=== PATIENT | male | born 1955 | race Caucasian/White ===

== ENCOUNTER 2019-05-29 18:15 | Emergency (ER) | payer OTHER ==
[2019-05-29] MEDS ORDERED: oxyCODONE TAB* 5 MG TAB PO ONE (21:26)
--- NOTE | 2019-05-29 22:00 | ED ---
Upper Extremity Pain - HPI Summary HPI Summary: 64 year old male presents with right little finger injury. States that he smashed it on some concrete while biking. He denies any hand pain. no other injury. Is right-handed. Has limited range of motion of his little finger. States is in extreme pain. Denies any injury. No loss consciousness. - History of Current Complaint Chief Complaint: EDExtremityUpper Stated Complaint: RT PINKY FINEGER INJURY PER PT Time Seen by Provider: 05/29/19 21:25 - Allergies/Home Medications Allergies/Adverse Reactions: Allergies Allergy/AdvReac Type Severity Reaction Status Date / Time acetaminophen Allergy Bleeding Verified 05/29/19 18:25 naproxen Allergy See Comment Verified 05/29/19 18:51 NSAIDS (Non-Steroidal Allergy Unknown Verified 05/29/19 18:51 Anti-Inflamma Reaction Details pravastatin Allergy Muscle Ache Verified 05/29/19 18:51 shellfish derived Allergy Hives Verified 05/29/19 18:25 Home Medications: Home Medications Aspirin EC TAB* [Ecotrin EC TAB*] 325 mg PO DAILY 01/03/12 [History Confirmed ] Citalopram TAB* [Celexa TAB*] 40 mg PO DAILY 01/03/12 [History Confirmed ] Furosemide TAB* [Lasix TAB*] 40 mg PO BID 01/03/12 [History Confirmed 11/16/15] Gemfibrozil TAB* [Lopid TAB*] 1 tab PO BID 01/03/12 [History Confirmed 11/16/15 ] cloNIDine TAB* [Catapres 0.1 MG TAB*] 0.2 mg PO BEDTIME 01/03/12 [History Confirmed 11/16/15] clonazePAM TAB(*) [Klonopin TAB(*)] 1 mg PO BID 01/03/12 [History Confirmed ] metFORMIN* [Glucophage 500 MG TAB *] 500 mg PO BID 01/03/12 [History Confirmed 11/16/15] Acyclovir* [Zovirax 400 MG TAB*] 400 mg PO BID 09/25/13 [History Confirmed 11/15] Nitroglycerin [Nitrostat] 0.4 mg SL SEE INSTRUCTIONS PRN 09/25/13 [History Confirmed 11/15/15] Ezetimibe TAB* [Zetia TAB*] 10 mg PO DAILY 11/15/15 [History Confirmed 11/16/15] Fluticasone NASAL SPRAY 50MCG* [Flonase NASAL SPRAY 50MCG*] 1 spray BOTH NARES DAILY PRN 11/15/15 [History Confirmed 11/16/15] Iron 65 mg PO DAILY 11/15/15 [History Confirmed 11/16/15] oxyCODONE SR TAB(*) [Oxycontin 10 mg (*)] 15 mg PO BID 11/15/15 [History Confirmed 11/16/15] Aclidinium [place] [Tudorza Pressair] 2 puff INH DAILY PRN 11/16/15 [History Confirmed 11/16/15] Allopurinol TAB* [Zyloprim 100 MG TAB*] 100 mg PO BID 11/16/15 [History Confirmed 11/16/15] Atenolol TAB* [Tenormin TAB* 25 MG] 25 mg PO BID 11/16/15 [History Confirmed ] Cholecalciferol [Vitamin D3] 50,000 unit PO MONTHLY 11/16/15 [History Confirmed 11/16/15] Famotidine TAB* [Pepcid 20 MG TAB*] 20 mg PO BID 11/16/15 [History Confirmed ] Lisinopril [Lisinopril 40 MG-] 40 mg PO DAILY 11/16/15 [History Confirmed ] Polyethylene Glycol 3350* [Miralax (17 GM DOSE NICANOR)] 17 gm PO DAILY PRN [History Confirmed 11/16/15] Trazodone HCl 3 tab PO BEDTIME 11/16/15 [History Confirmed 11/16/15] oxyCODONE TAB* [Roxycodone TAB 5 mg*] 5 mg PO Q6H PRN #16 tab MDD 4 05/29/19 [Rx ] PMH/Surg Hx/FS Hx/Imm Hx Endocrine/Hematology History: Reports: Hx Diabetes, Hx Anemia Denies: Hx Anticoagulant Therapy, Hx Blood Disorders, Hx Blood Transfusions, Hx Bone Marrow Disease, Hx Systemic Lupus Erythematosus, Hx Sickle Cell Disease , Hx Thyroid Disease, Hx Unexplained Bleeding Cardiovascular History: Reports: Hx Angina, Hx Congestive Heart Failure, Hx Coronary Artery Disease, Hx Hypercholesterolemia, Hx Hypertension, Hx Syncope - day of admission, Other Cardiovascular Problems/Disorders - CORONARY ARTERIOSCLEROSIS Denies: Hx Aneurysm, Hx Angioplasty, Hx Auto Implanted Cardiovert Defib, Hx Cardiac Arrest, Hx Cardiomegaly, Hx Congenital Heart Disease, Hx Deep Vein Thrombosis, Hx Hypotension, Hx Pacemaker/ICD, Hx Peripheral Vascular Disease, Hx Rheumatic Fever, Hx Valvular Heart Disease Respiratory History: Reports: Hx Asthma, Hx Chronic Obstructive Pulmonary Disease (COPD), Hx Lung Cancer, Hx Pneumonia, Hx Sleep Apnea Denies: Hx Chronic Bronchitis, Hx Cystic Fibrosis, Hx Pleural Effusion, Hx Pulmonary Edema, Hx Pulmonary Embolism, Hx Seasonal Allergies Comment Only: Other Respiratory Problems/Disorders - smoker; wears bipap at HS GI History: Reports: Hx Diverticulosis, Hx Gastrointestinal Bleed, Other GI Disorders - GI BLEED, UMBILICAL HERNIA Denies: Hx Cirrhosis, Hx Crohn's Disease, Hx Gall Bladder Disease, Hx Gastroesophageal Reflux Disease, Hx Hiatal Hernia, Hx Irritable Bowel, Hx Jaundice, Hx Obstructive Bowel, Hx Ileostomy, Hx Pyloric Stenosis, Hx Ulcer History: Reports: Hx Acute Renal Failure - 06/2011, Hx Kidney Infection, Hx Renal Disease - ACUTE RENAL DUE 2 NSAID'S Denies: Hx Benign Prostatic Hyperplasia, Hx Chronic Renal Failure, Hx Dialysis, Hx Kidney Stones, Other Problems/Disorders Musculoskeletal History: Reports: Hx Arthritis - bilat hands, RIGHT KNEE, Hx Back Problems - herniated discs, Hx Gout, Hx Orthopedic Injury - left wrist, Other Musculoskeletal History - knee problems Denies: Hx Bursitis, Hx Congenital Bone Abnormalities, Hx Fibromyalgia, Hx Osteoporosis, Hx Scoliosis, Hx Tendonitis Sensory History: Reports: Hx Contacts or Glasses Denies: Hx Cataracts, Hx Eye Injury, Hx Eye Prosthesis, Hx Glaucoma, Hx Macular Degeneration, Hx Vision Problem, Hx Deafness, Hx Hearing Aid, Hx Hearing Problem, Other Sensory Impairments Opthamlomology History: Reports: Hx Contacts or Glasses Denies: Hx Cataracts, Hx Eye Injury, Hx Eye Prosthesis, Hx Glaucoma, Hx Macular Degeneration, Hx Vision Problem, Other Sensory Impairments Neurological History: Reports: Hx Headaches Denies: Hx Dementia, Hx Seizures Psychiatric History: Reports: Hx Anxiety - ON MEDICATION FOR, Hx Depression - ON MEDICATION FOR, Hx Panic Disorder, Hx Substance Abuse Denies: Hx Attention Deficit Hyperactivity Disorder, Hx Eating Disorder, Hx Post Traumatic Stress Disorder, Hx Inpatient Treatment, Hx Community Mental Health Tx, Hx Schizophrenia, Hx Bipolar Disorder, Hx Suicide Attempt - Surgical History Surgery Procedure, Year, and Place: R knee at [facility] for torn meniscus. bilat wrist surgery in [place]. rhinoplasty for deviated septum. REPAIR OF LACERATION HAND-1988 Hx Anesthesia Reactions: No - Immunization History Date of Tetanus Vaccine: Up to date Date of Influenza Vaccine: Fall 2012 Infectious Disease History: Yes Infectious Disease History: Reports: Hx Hepatitis - C, Hx Shingles - pt unsure if it was shingles or herpes, Hx Tuberculosis - exposure; +PPD, -CXR Denies: Hx Clostridium Difficile, Hx Human Immunodeficiency Virus (HIV), Traveled Outside the [place] in Last 30 Days - Social History Alcohol Use: None Alcohol Amount: SOBER X 8 YEARS Substance Use Type: Reports: Excessive Caffeine Hx Tobacco Use: Yes Smoking Status (MU): Former Smoker Type: eCigarettes Amount Used/How Often: 1-2 PPD X 30 YEARS Length of Time of Smoking/Using Tobacco: 30 yrs Have You Smoked in the Last Year: Yes Review of Systems Negative: Fever Negative: Chest Pain Negative: Shortness Of Breath Positive: Myalgia - right little finger pain All Other Systems Reviewed And Are Negative: Yes Physical Exam Triage Information Reviewed: Yes Vital Signs On Initial Exam: Initial Vitals Temp Pulse Resp BP Pulse Ox 97.9 F 69 16 110/65 96 05/29/19 18:23 05/29/19 18:23 05/29/19 18:23 05/29/19 18:23 05/29/19 18:23 Vital Signs Reviewed: Yes Appearance: Positive: Well-Appearing Skin: Positive: Warm, Dry Head/Face: Positive: Normal Head/Face Inspection Eyes: Positive: Normal, Conjunctiva Clear ENT: Positive: Pharynx normal Respiratory/Lung Sounds: Positive: Clear to Auscultation, Breath Sounds Present Cardiovascular: Positive: Normal, RRR Musculoskeletal: Positive: Limited @ - right little finger, Other - good pulses , tenderness and bruising left little finger Neurological: Positive: Normal Psychiatric: Positive: Normal Procedures - Sedation Patient Received Moderate/Deep Sedation with Procedure: No Diagnostics - Vital Signs Vital Signs Temp Pulse Resp BP Pulse Ox 05/29/19 20:40 98.2 F 72 18 119/62 97 05/29/19 18:23 97.9 F 69 16 110/65 96 - Laboratory Lab Statement: Any lab studies that have been ordered have been reviewed, and results considered in the medical decision making process. - Radiology finger Radiology Interpretation Completed By: ED Physician Summary of Radiographic Findings: 1st proximal phlanax fracture Course/Dx - Course Course Of Treatment: 64 year old male presents with right little finger injury. States that he smashed it on some concrete while biking. He denies any hand pain. no other injury. Is right-handed. Has limited range of motion of his little finger. States is in extreme pain. Denies any injury. No loss consciousness. On exam tenderness over proximal phalanx right hand. Ecchymosis to the area. X-ray shows a fracture of the proximal phalanx. Place in finger splint. told to follow-up with orthopedic. Patient understands and agrees with plan. - Diagnoses Differential Diagnosis/HQI/PQRI: Positive: Fracture (Closed), Strain, Sprain Provider Diagnoses: Fracture of proximal phalanx of right little finger Discharge ED - Sign-Out/Discharge Documenting (check all that apply): Patient Departure - Discharge Plan Condition: Good Disposition: HOME Prescriptions: oxyCODONE TAB* [Roxycodone TAB 5 mg*] 5 mg PO Q6H PRN #16 tab MDD 4 PRN Reason: Pain - Severe Patient Education Materials: Finger Fracture (ED) Referrals: Wayne Townsend MD [Primary Care Provider] - Emiliano Vallejo MD [Medical Doctor] - Additional Instructions: Keep finger in splint Follow up with ortho apply ice, elevate Take oxycodone every 6 hours for severe pain Return to ED if develop any new or worsening symptoms - Billing Disposition and Condition Condition: GOOD Disposition: Home
[2019-05-29 22:17] VITALS: BP 117/75
== END 2019-05-29 22:16 | disposition home or self-care (01) ==
LOC: ED 18:15
DX: S62.646A Nondisplaced fracture of proximal phalanx of right little finger, initial encounter for closed fracture (principal); W23.0XXA Caught, crushed, jammed, or pinched between moving objects, initial encounter; Y93.55 Activity, bike riding; Y92.9 Unspecified place or not applicable; E11.9 Type 2 diabetes mellitus without complications; D64.9 Anemia, unspecified; I11.0 Hypertensive heart disease with heart failure; I50.9 Heart failure, unspecified; I25.10 Atherosclerotic heart disease of native coronary artery without angina pectoris; E78.00 Pure hypercholesterolemia, unspecified; J44.9 Chronic obstructive pulmonary disease, unspecified; F41.9 Anxiety disorder, unspecified; F32.9 Major depressive disorder, single episode, unspecified; Z87.891 Personal history of nicotine dependence; Z79.84 Long term (current) use of oral hypoglycemic drugs; Z79.82 Long term (current) use of aspirin; Z79.899 Other long term (current) drug therapy; Z88.8 Allergy status to other drugs, medicaments and biological substances
CPT/HCPCS: 73140; 99282; A9270-GY

== ENCOUNTER 2020-10-10 13:26 | Inpatient (IN) ==
[2020-10-10] MEDS ORDERED: NS 0.9% 1000 ml BAG 1,000 ML IV ONE (14:15)
[2020-10-10 15:01] LABS: ABS Eosinophils 0.1 10^3/ul (0-0.6); ABS Monocytes 0.5 10^3/ul (0-0.8); ABS Neutrophils 3.8 10^3/ul (1.5-7.7); Eosinophil % 2.2 %; Hematocrit 31 % (42-52); Hemoglobin 10.2 g/dL (14.0-18.0); Lymphocyte % 18.1 %; Mean Corpuscular HGB Conc 33 g/dL (31-36); Mean Corpuscular Hemoglobin 32 pg (27-31); Mean Corpuscular Volume 97 fL (80-94); Mean Platelet Volume 7.3 fL (7.4-10.4); Platelet Count 200 10^3/uL (150-450); Red Blood Count 3.15 10^6 /uL (4.18-5.48); Red Cell Distribution Width 14 % (10-15); White Blood Count 5.5 10^3/uL (3.5-10.8)
[2020-10-10 15:18] LABS: Activated Partial Thrombo Time 40.9 seconds (26.0-38.0); INR 1.08 (0.86-1.15)
[2020-10-10 16:41] LABS: Albumin 4.2 g/dL (3.2-5.2); Albumin/Globulin Ratio 1.6 (1-3); C Reactive Protein 4.04 mg/L (<8.01); Calcium 9.4 mg/dL (8.6-10.3); EGFR African American 58.4 (>60); EGFR Non-African American 48.2 (>60); Globulin 2.6 g/dL (2-4); Potassium 4.9 mmol/L (3.5-5.0); Total Bilirubin 0.4 mg/dL (0.2-1.0); Total Protein 6.8 g/dL (6.4-8.9)
[2020-10-10] MEDS ORDERED: Iodixanol (CONTRAST) 320 MG/ML 100 ML SDV IV ONE (17:04)
[2020-10-10] MEDS ORDERED: Lactated Ringers 1000 ml BAG 1,000 ML IV ONE (17:59)
[2020-10-10] MEDS ORDERED: Ondansetron 4 mg VIAL 2 MG/ML 2 ml VIAL IV PRN (19:36)
[2020-10-10] MEDS ORDERED: Dextrose 50% Syringe 50 ml 25 GM/50 ML SYRINGE IV PUSH PRN (19:50)
[2020-10-10] MEDS ORDERED: CLONIDINE HCL 0.2 MG PO SCH (21:00)
[2020-10-10] MEDS: Lactated Ringers 1000 ml BAG 1,000 ML IV SCH (22:14)
[2020-10-10 22:28] LABS: Hematocrit 27 % (42-52); Hemoglobin 9.2 g/dL (14.0-18.0)
[2020-10-10] MEDS: Gemfibrozil 600 mg PO SCH (22:34)
[2020-10-10 22:56] LABS: % Iron Saturation 28 % (15-55); Iron 92 ug/dL (50-212); Total Iron Binding Capacity 332 mcg/dL (250-450); Transferrin 237 mg/dL (203-362); Unsaturated Iron Binding < 317 ug/dL
[2020-10-10 23:16] LABS: Ferritin 61.3 ng/mL (24-336)
[2020-10-10 23:19] LABS: Folate > 20.00 ng/mL (5.90-24.80)
[2020-10-10 23:20] LABS: Vitamin B12 304 pg/mL (180-914)
[2020-10-11 01:57] LABS: Hematocrit 24 % (42-52); Hemoglobin 8.1 g/dL (14.0-18.0)
[2020-10-11 04:26] LABS: ABS Eosinophils 0.2 10^3/ul (0-0.6); ABS Lymphocytes 1.5 10^3/ul (1.0-4.8); ABS Monocytes 0.5 10^3/ul (0-0.8); ABS Neutrophils 1.8 10^3/ul (1.5-7.7); Eosinophil % 4.3 %; Hematocrit 24 % (42-52); Hemoglobin 8.2 g/dL (14.0-18.0); Lymphocyte % 37.7 %; Mean Corpuscular HGB Conc 34 g/dL (31-36); Mean Corpuscular Hemoglobin 33 pg (27-31); Mean Corpuscular Volume 97 fL (80-94); Mean Platelet Volume 7.1 fL (7.4-10.4); Nucleated Red Blood Cells % 0.1; Platelet Count 152 10^3/uL (150-450); Red Blood Count 2.47 10^6 /uL (4.18-5.48); Red Cell Distribution Width 14 % (10-15)
[2020-10-11 04:40] LABS: Calcium 8.4 mg/dL (8.6-10.3); EGFR African American 62.8 (>60); EGFR Non-African American 51.9 (>60); Magnesium 1.8 mg/dL (1.9-2.7); Potassium 3.8 mmol/L (3.5-5.0)
[2020-10-11] MEDS: Lactated Ringers 1000 ml BAG 1,000 ML IV SCH ×2 (05:48→20:29)
[2020-10-11] MEDS: SPIRIVA Respimat (tiotropium) 2.5 mcg/inh Inhaler INH SCH (07:32)
[2020-10-11] MEDS: buPROPion SR 100 mg TAB.SR PO SCH (11:17)
[2020-10-11] MEDS: Gemfibrozil 600 mg PO SCH ×2 (11:18→20:32)
[2020-10-11 15:03] LABS: ABS Eosinophils 0.1 10^3/ul (0-0.6); ABS Monocytes 0.4 10^3/ul (0-0.8); Eosinophil % 2.6 %; Hematocrit 22 % (42-52); Hemoglobin 7.6 g/dL (14.0-18.0); Lymphocyte % 22.7 %; Mean Corpuscular HGB Conc 34 g/dL (31-36); Mean Corpuscular Hemoglobin 33 pg (27-31); Mean Corpuscular Volume 97 fL (80-94); Mean Platelet Volume 7.9 fL (7.4-10.4); Nucleated Red Blood Cells % 0.1; Platelet Count 184 10^3/uL (150-450); Red Cell Distribution Width 15 % (10-15); White Blood Count 4.6 10^3/uL (3.5-10.8)
[2020-10-11] MEDS ORDERED: PEG 3000 GI LAVAGE 1 GALLON PO ONE (15:54)
[2020-10-11 21:14] LABS: ABS Eosinophils 0.2 10^3/ul (0-0.6); ABS Lymphocytes 1.4 10^3/ul (1.0-4.8); ABS Monocytes 0.5 10^3/ul (0-0.8); ABS Neutrophils 2.8 10^3/ul (1.5-7.7); Eosinophil % 3.3 %; Hematocrit 23 % (42-52); Hemoglobin 7.9 g/dL (14.0-18.0); Lymphocyte % 28.5 %; Mean Corpuscular HGB Conc 34 g/dL (31-36); Mean Corpuscular Hemoglobin 33 pg (27-31); Mean Corpuscular Volume 97 fL (80-94); Mean Platelet Volume 7.2 fL (7.4-10.4); Platelet Count 182 10^3/uL (150-450); Red Blood Count 2.37 10^6 /uL (4.18-5.48); Red Cell Distribution Width 14 % (10-15); White Blood Count 4.9 10^3/uL (3.5-10.8)
[2020-10-12 05:02] LABS: ABS Eosinophils 0.2 10^3/ul (0-0.6); ABS Lymphocytes 1.7 10^3/ul (1.0-4.8); ABS Monocytes 0.6 10^3/ul (0-0.8); Eosinophil % 3.9 %; Hematocrit 22 % (42-52); Hemoglobin 7.5 g/dL (14.0-18.0); Lymphocyte % 30.6 %; Mean Corpuscular HGB Conc 34 g/dL (31-36); Mean Corpuscular Hemoglobin 33 pg (27-31); Mean Corpuscular Volume 97 fL (80-94); Mean Platelet Volume 7.2 fL (7.4-10.4); Nucleated Red Blood Cells % 0.1; Platelet Count 166 10^3/uL (150-450); Red Blood Count 2.25 10^6 /uL (4.18-5.48); Red Cell Distribution Width 15 % (10-15); White Blood Count 5.5 10^3/uL (3.5-10.8)
[2020-10-12 05:18] LABS: Calcium 8.6 mg/dL (8.6-10.3); EGFR African American 79.1 (>60); EGFR Non-African American 65.3 (>60); Potassium 3.8 mmol/L (3.5-5.0)
[2020-10-12] MEDS ORDERED: fentaNYL 100 mcg/2 ml 50 MCG/ML VIAL ONE (08:56)
[2020-10-12] MEDS ORDERED: Midazolam 10 mg/10 ml VIAL 1 mg/ml 10 ml VIAL (10 mg) ONE (08:56)
[2020-10-12] MEDS: SPIRIVA Respimat (tiotropium) 2.5 mcg/inh Inhaler INH SCH (10:38)
[2020-10-12] MEDS: buPROPion SR 100 mg TAB.SR PO SCH (12:12)
[2020-10-12] MEDS: Gemfibrozil 600 mg PO SCH ×2 (12:14→20:42)
[2020-10-12 12:16] LABS: ABS Eosinophils 0.1 10^3/ul (0-0.6); ABS Lymphocytes 0.7 10^3/ul (1.0-4.8); ABS Monocytes 0.4 10^3/ul (0-0.8); ABS Neutrophils 2.2 10^3/ul (1.5-7.7); Eosinophil % 2.4 %; Hematocrit 20 % (42-52); Hemoglobin 6.8 g/dL (14.0-18.0); Mean Corpuscular HGB Conc 35 g/dL (31-36); Mean Corpuscular Hemoglobin 33 pg (27-31); Mean Corpuscular Volume 97 fL (80-94); Platelet Count 145 10^3/uL (150-450); Red Blood Count 2.03 10^6 /uL (4.18-5.48); Red Cell Distribution Width 14 % (10-15); White Blood Count 3.4 10^3/uL (3.5-10.8)
[2020-10-12 22:00] LABS: ABS Eosinophils 0.1 10^3/ul (0-0.6); ABS Monocytes 0.6 10^3/ul (0-0.8); ABS Neutrophils 2.5 10^3/ul (1.5-7.7); Eosinophil % 3.4 %; Hematocrit 23 % (42-52); Hemoglobin 7.9 g/dL (14.0-18.0); Lymphocyte % 22.7 %; Mean Corpuscular HGB Conc 35 g/dL (31-36); Mean Corpuscular Hemoglobin 32 pg (27-31); Mean Corpuscular Volume 93 fL (80-94); Mean Platelet Volume 6.9 fL (7.4-10.4); Platelet Count 156 10^3/uL (150-450); Red Blood Count 2.46 10^6 /uL (4.18-5.48); Red Cell Distribution Width 17 % (10-15); White Blood Count 4.2 10^3/uL (3.5-10.8)
[2020-10-12] MEDS ORDERED: Furosemide 20 mg/2 ml IV VIAL IV ONE (22:00)
[2020-10-13] MEDS ORDERED: Furosemide 20 mg/2 ml IV VIAL IV ONE (04:00)
[2020-10-13 05:01] LABS: ABS Eosinophils 0.2 10^3/ul (0-0.6); ABS Lymphocytes 1.3 10^3/ul (1.0-4.8); ABS Monocytes 0.6 10^3/ul (0-0.8); ABS Neutrophils 2.2 10^3/ul (1.5-7.7); Eosinophil % 4.3 %; Hematocrit 25 % (42-52); Hemoglobin 8.6 g/dL (14.0-18.0); Lymphocyte % 30.3 %; Mean Corpuscular HGB Conc 34 g/dL (31-36); Mean Corpuscular Hemoglobin 32 pg (27-31); Mean Corpuscular Volume 92 fL (80-94); Mean Platelet Volume 7.1 fL (7.4-10.4); Nucleated Red Blood Cells % 0.1; Platelet Count 152 10^3/uL (150-450); Red Blood Count 2.73 10^6 /uL (4.18-5.48); Red Cell Distribution Width 17 % (10-15); White Blood Count 4.3 10^3/uL (3.5-10.8)
[2020-10-13 05:18] LABS: Calcium 8.8 mg/dL (8.6-10.3); EGFR Non-African American 71.1 (>60); Potassium 3.9 mmol/L (3.5-5.0)
[2020-10-13] MEDS: buPROPion SR 100 mg TAB.SR PO SCH (09:00)
[2020-10-13] MEDS: Gemfibrozil 600 mg PO SCH ×2 (09:08→19:55)
[2020-10-13] MEDS: SPIRIVA Respimat (tiotropium) 2.5 mcg/inh Inhaler INH SCH (09:19)
[2020-10-14 05:09] LABS: ABS Eosinophils 0.2 10^3/ul (0-0.6); ABS Lymphocytes 1.5 10^3/ul (1.0-4.8); ABS Monocytes 0.6 10^3/ul (0-0.8); ABS Neutrophils 2.3 10^3/ul (1.5-7.7); Eosinophil % 4.7 %; Hematocrit 26 % (42-52); Hemoglobin 9.1 g/dL (14.0-18.0); Lymphocyte % 32.3 %; Mean Corpuscular HGB Conc 35 g/dL (31-36); Mean Corpuscular Hemoglobin 33 pg (27-31); Mean Corpuscular Volume 92 fL (80-94); Mean Platelet Volume 7.4 fL (7.4-10.4); Nucleated Red Blood Cells % 0.1; Platelet Count 167 10^3/uL (150-450); Red Blood Count 2.79 10^6 /uL (4.18-5.48); Red Cell Distribution Width 17 % (10-15); White Blood Count 4.6 10^3/uL (3.5-10.8)
[2020-10-14 05:23] LABS: Calcium 9.1 mg/dL (8.6-10.3); EGFR African American 78.3 (>60); EGFR Non-African American 64.7 (>60); Potassium 4.1 mmol/L (3.5-5.0)
[2020-10-14] MEDS: SPIRIVA Respimat (tiotropium) 2.5 mcg/inh Inhaler INH SCH (07:15)
[2020-10-14] MEDS: buPROPion SR 100 mg TAB.SR PO SCH (09:52)
[2020-10-14] MEDS: Gemfibrozil 600 mg PO SCH (09:52)
[2020-10-14] MEDS ORDERED: Polyethylene Glycol 3350 17 GM PACKET PO ONE (10:03)
[2020-10-14 20:32] VITALS: BP 122/76
== END 2020-10-14 16:35 | disposition home or self-care (01) | DRG 244 ==
LOC: MEDTELE 13:26 → ED 13:26 → MEDTELE 21:48
PROVIDERS: ADMIT Internal Medicine; ATTEND Internal Medicine

== ENCOUNTER 2021-11-22 17:18 | Inpatient (IN) ==
[2021-11-22 18:51] LABS: Hematocrit 34 % (42-52); Hemoglobin 11.7 g/dL (14.0-18.0); Mean Corpuscular HGB Conc 35 g/dL (31-36); Mean Corpuscular Hemoglobin 32 pg (27-31); Mean Corpuscular Volume 93 fL (80-94); Mean Platelet Volume 6.6 fL (7.4-10.4); Platelet Count 336 10^3/uL (150-450); Red Blood Count 3.66 10^6 /uL (4.18-5.48); Red Cell Distribution Width 14 % (10-15); White Blood Count 17.4 10^3/uL (3.5-10.8)
[2021-11-22 19:14] LABS: High Sens Troponin Baseline 24 pg/mL (<20)
[2021-11-22] MEDS ORDERED: Lactated Ringers 1000 ml BAG 1,000 ML IV ONE ×2 (19:23→20:31)
[2021-11-22 19:27] LABS: ABS Lymphocytes 1.1 10^3/ul (1.0-4.8); ABS Monocytes 0.9 10^3/ul (0-0.8); ABS Neutrophils 15.4 10^3/ul (1.5-7.7); Lymphocyte % 6.5 %
[2021-11-22 19:31] LABS: ALT 25 U/L (7-52); AST 89 U/L (13-39); Albumin 4.9 g/dL (3.2-5.2); Albumin/Globulin Ratio 1.6 (1-3); Alcohol, S < 13 mg/dL (<13); Alkaline Phosphatase 68 U/L (35-149); Anion Gap 20 mmol/L (2-11); Blood Urea Nitrogen 62 mg/dL (6-24); CO2 Carbon Dioxide 21 mmol/L (22-32); Calcium 11.2 mg/dL (8.6-10.3); Chloride 84 mmol/L (101-111); Creatine Kinase 1893 U/L (10-223); Glucose 129 mg/dL (70-100); Sodium 125 mmol/L (135-145); Total Protein 7.9 g/dL (6.4-8.9); eGFR CKD-EPI 24.6 (>60)
[2021-11-22 19:45] LABS: TSH Ultra Thyroid Stim Horm 1.51 mcIU/mL (0.34-5.60)
[2021-11-22 19:48] LABS: Venous Bicarbonate HCO3 24.7 mmol/L (24-28)
[2021-11-22 20:11] LABS: High Sensitivity Troponin 1 Hr 26 pg/mL (<20)
[2021-11-22] MEDS ORDERED: cefTRIAXone 1 gm/50 mL D5W 1 GM/50 ML BAG IV ONE (20:27)
[2021-11-22 21:26] LABS: Ur Urea Nitrogen Concentration 747 mg/dL; Urine Creatinine Concentration 119.35 mg/dL
[2021-11-22 21:27] LABS: Urine Benzodiazepine Screen None Detected (None Detect); Urine Cannabinoids Screen None Detected (None Detect); Urine Opiates Screen None Detected (None Detect)
[2021-11-22 21:28] LABS: Urine Appearance Clear; Urine Bilirubin Negative (Negative); Urine Color Yellow; Urine Glucose Negative (Negative); Urine Ketones 1+ (15mg/dL) (Negative); Urine Nitrite Negative (Negative); Urine Protein 1+ (30 mg/dL) (Negative); Urine Urobilinogen 0.2 (Negative) (Negative); Urine pH 5.5 (5.0-9.0)
[2021-11-22 21:32] LABS: Urine Bacteria Absent (Absent); Urine Red Blood Cell Trace(0-2/hpf) (Absent); Urine Squamous Epithelial Cell Present (Absent); Urine White Blood Cell Trace(0-5/hpf) (Absent)
[2021-11-22 21:54] LABS: C Reactive Protein 41.41 mg/L (<8.01)
[2021-11-22] MEDS ORDERED: NS 0.9% 1000 ml BAG 1,000 ML IV SCH (22:30)
[2021-11-22 22:50] LABS: Phosphorus 3.7 mg/dL (2.5-5.0)
[2021-11-22 23:29] LABS: Erythrocyte Sed Rate 63 mm/Hr (0-19)
[2021-11-23] MEDS ORDERED: Polyethylene Glycol 3350 17 GM PACKET PO PRN (03:56)
[2021-11-23] MEDS ORDERED: Albuterol HFA INHALER 8 gm MDI INH PRN (03:56)
[2021-11-23] MEDS ORDERED: NS 0.9% 1000 ml BAG 1,000 ML IV SCH (04:30)
[2021-11-23] MEDS ORDERED: Dextran 70/Hypromellose Tears Eye Drops 15 ml BTL (for Artificials Tears) BOTH EYES PRN (04:46)
[2021-11-23 05:44] LABS: ABS Lymphocytes 0.9 10^3/ul (1.0-4.8); ABS Neutrophils 11.7 10^3/ul (1.5-7.7); Hematocrit 30 % (42-52); Hemoglobin 10.2 g/dL (14.0-18.0); Lymphocyte % 6.9 %; Mean Corpuscular HGB Conc 34 g/dL (31-36); Mean Corpuscular Hemoglobin 32 pg (27-31); Mean Corpuscular Volume 93 fL (80-94); Mean Platelet Volume 6.5 fL (7.4-10.4); Platelet Count 313 10^3/uL (150-450); Red Blood Count 3.21 10^6 /uL (4.18-5.48); Red Cell Distribution Width 14 % (10-15); White Blood Count 13.7 10^3/uL (3.5-10.8)
[2021-11-23 07:15] LABS: Albumin 4.2 g/dL (3.2-5.2); Albumin/Globulin Ratio 1.8 (1-3); Calcium 10.1 mg/dL (8.6-10.3); Globulin 2.4 g/dL (2-4); Potassium 3.7 mmol/L (3.5-5.0); Total Bilirubin 0.6 mg/dL (0.2-1.0); Total Protein 6.6 g/dL (6.4-8.9); eGFR CKD-EPI 39.2 (>60)
[2021-11-23 07:46] LABS: Osmolality Serum 285 mOsm/kg (275-295)
[2021-11-23 08:24] LABS: Urine Sodium Concentration < 18 mmol/L
[2021-11-23 09:55] LABS: Urine Osmo 440 mOsm/kg (150-1150)
[2021-11-23] MEDS: Gemfibrozil 600 mg PO SCH ×2 (10:53→22:21)
[2021-11-23] MEDS: Fluticasone NASAL SPRAY 50MCG 16 gm SPRAY BTL INTRANASAL SCH (10:53)
[2021-11-23] MEDS: Aspirin EC 81 mg TAB.EC (enteric coated) PO SCH (10:55)
[2021-11-23] MEDS: SPIRIVA Respimat (tiotropium) 2.5 mcg/inh Inhaler INH SCH (10:56)
[2021-11-23 14:29] LABS: Ferritin 176.6 ng/mL (24-336)
[2021-11-23] MEDS: Lactated Ringers 1000 ml BAG 1,000 ML IV SCH (15:11)
[2021-11-23] MEDS: Thiamine 100 MG/ML 2 ml VIAL 100 MG in NS 0.9% 50 ML 50 ML IV SCH (17:17)
[2021-11-23] MEDS ORDERED: LORazepam 2 mg VIAL 1 ml ONE (18:16)
[2021-11-23] MEDS ORDERED: LORazepam 2 mg VIAL 1 ml IV PUSH ONE (18:20)
[2021-11-23] MEDS ORDERED: levETIRAcetam 1000MG IVPREMIX 1,000 MG/100 ML BAG IVPB ONE (18:20)
[2021-11-23] MEDS ORDERED: Enoxaparin 30 MG/0.3 ML SYR SUBCUT SCH (19:00)
[2021-11-23 20:06] LABS: Calcium 9.9 mg/dL (8.6-10.3); Potassium 4.1 mmol/L (3.5-5.0); eGFR CKD-EPI 47.5 (>60)
[2021-11-23] MEDS: levETIRAcetam 500 MG IVPREMIX 500 MG/100 ML BAG IV SCH (20:20)
[2021-11-23] MEDS ORDERED: levETIRAcetam 500 MG/100 ML IV ONE (21:00)
[2021-11-24] MEDS: Lactated Ringers 1000 ml BAG 1,000 ML IV SCH ×2 (01:32→17:12)
[2021-11-24] MEDS ORDERED: LORazepam 2 mg VIAL 1 ml IV PUSH PRN ×2 (02:17→02:27)
[2021-11-24] MEDS ORDERED: Lorazepam PYXIS KEY PRN (02:17)
[2021-11-24 06:18] LABS: ABS Lymphocytes 0.7 10^3/ul (1.0-4.8); ABS Monocytes 0.8 10^3/ul (0-0.8); ABS Neutrophils 12.9 10^3/ul (1.5-7.7); Hematocrit 27 % (42-52); Hemoglobin 9.1 g/dL (14.0-18.0); Lymphocyte % 4.9 %; Mean Corpuscular HGB Conc 34 g/dL (31-36); Mean Corpuscular Hemoglobin 32 pg (27-31); Mean Corpuscular Volume 94 fL (80-94); Mean Platelet Volume 6.9 fL (7.4-10.4); Nucleated Red Blood Cells % 0.1; Platelet Count 273 10^3/uL (150-450); Red Blood Count 2.87 10^6 /uL (4.18-5.48); Red Cell Distribution Width 14 % (10-15); White Blood Count 14.4 10^3/uL (3.5-10.8)
[2021-11-24 06:32] LABS: Calcium 9.2 mg/dL (8.6-10.3); Magnesium 2.1 mg/dL (1.9-2.7); Potassium 3.9 mmol/L (3.5-5.0); eGFR CKD-EPI 58.3 (>60)
[2021-11-24] MEDS: SPIRIVA Respimat (tiotropium) 2.5 mcg/inh Inhaler INH SCH (08:09)
[2021-11-24] MEDS: Aspirin EC 81 mg TAB.EC (enteric coated) PO SCH (09:12)
[2021-11-24] MEDS: Gemfibrozil 600 mg PO SCH ×2 (09:12→21:34)
[2021-11-24] MEDS: levETIRAcetam 500 MG IVPREMIX 500 MG/100 ML BAG IV SCH (09:14)
[2021-11-24] MEDS: Fluticasone NASAL SPRAY 50MCG 16 gm SPRAY BTL INTRANASAL SCH (09:14)
[2021-11-24] MEDS: Thiamine 100 MG/ML 2 ml VIAL 100 MG in NS 0.9% 50 ML 50 ML IV SCH (17:11)
[2021-11-24] MEDS ORDERED: Enoxaparin 40 MG/0.4 ML SYR SUBCUT SCH (22:00)
[2021-11-25] MEDS: Lactated Ringers 1000 ml BAG 1,000 ML IV SCH (03:41)
[2021-11-25 06:04] LABS: ABS Eosinophils 0.1 10^3/ul (0-0.6); ABS Lymphocytes 1.5 10^3/ul (1.0-4.8); ABS Monocytes 0.9 10^3/ul (0-0.8); ABS Neutrophils 6.7 10^3/ul (1.5-7.7); Eosinophil % 1.1 %; Hematocrit 21 % (42-52); Hemoglobin 7.5 g/dL (14.0-18.0); Lymphocyte % 15.9 %; Mean Corpuscular HGB Conc 36 g/dL (31-36); Mean Corpuscular Hemoglobin 34 pg (27-31); Mean Corpuscular Volume 95 fL (80-94); Mean Platelet Volume 6.9 fL (7.4-10.4); Platelet Count 235 10^3/uL (150-450); Red Blood Count 2.21 10^6 /uL (4.18-5.48); Red Cell Distribution Width 14 % (10-15); White Blood Count 9.2 10^3/uL (3.5-10.8)
[2021-11-25 06:39] LABS: Calcium 8.4 mg/dL (8.6-10.3); Magnesium 1.7 mg/dL (1.9-2.7); Potassium 3.5 mmol/L (3.5-5.0); eGFR CKD-EPI 77.9 (>60)
[2021-11-25] MEDS ORDERED: Magnesium Sulfate IV 3 GM in NS 0.9% 100 ml BAG 100 ML IVPB ONE (08:04)
[2021-11-25 08:23] LABS: ABS Eosinophils 0.1 10^3/ul (0-0.6); ABS Lymphocytes 1.4 10^3/ul (1.0-4.8); ABS Monocytes 0.9 10^3/ul (0-0.8); ABS Neutrophils 6.3 10^3/ul (1.5-7.7); Eosinophil % 0.9 %; Hematocrit 20 % (42-52); Hemoglobin 6.7 g/dL (14.0-18.0); Lymphocyte % 16.4 %; Mean Corpuscular HGB Conc 34 g/dL (31-36); Mean Corpuscular Hemoglobin 32 pg (27-31); Mean Corpuscular Volume 94 fL (80-94); Mean Platelet Volume 6.2 fL (7.4-10.4); Platelet Count 229 10^3/uL (150-450); Red Cell Distribution Width 14 % (10-15); White Blood Count 8.8 10^3/uL (3.5-10.8)
[2021-11-25] MEDS: SPIRIVA Respimat (tiotropium) 2.5 mcg/inh Inhaler INH SCH (08:34)
[2021-11-25 09:44] LABS: High Sensitivity Troponin 1 Hr 57 pg/mL (<20)
[2021-11-25] MEDS: Aspirin EC 81 mg TAB.EC (enteric coated) PO SCH (10:37)
[2021-11-25] MEDS: Gemfibrozil 600 mg PO SCH ×2 (10:38→22:35)
[2021-11-25] MEDS: Fluticasone NASAL SPRAY 50MCG 16 gm SPRAY BTL INTRANASAL SCH (10:39)
[2021-11-25] MEDS ORDERED: Al Hydrox/Mg Hydrox/Simet LIQ 30 ML UDC PO ONE (11:51)
[2021-11-25] MEDS: Pantoprazole VIAL 40 MG VIAL IV SCH (15:41)
[2021-11-25 15:56] LABS: ABS Eosinophils 0.1 10^3/ul (0-0.6); ABS Lymphocytes 1.2 10^3/ul (1.0-4.8); ABS Neutrophils 6.7 10^3/ul (1.5-7.7); Eosinophil % 0.7 %; Hematocrit 21 % (42-52); Hemoglobin 7.9 g/dL (14.0-18.0); Lymphocyte % 13.4 %; Mean Corpuscular HGB Conc 37 g/dL (31-36); Mean Corpuscular Hemoglobin 34 pg (27-31); Mean Corpuscular Volume 93 fL (80-94); Mean Platelet Volume 6.6 fL (7.4-10.4); Platelet Count 225 10^3/uL (150-450); Red Blood Count 2.29 10^6 /uL (4.18-5.48); Red Cell Distribution Width 14 % (10-15)
[2021-11-25 16:13] LABS: HDL Cholesterol 33.2 mg/dL
[2021-11-25] MEDS: Thiamine 100 MG/ML 2 ml VIAL 100 MG in NS 0.9% 50 ML 50 ML IV SCH (17:12)
[2021-11-25 20:00] LABS: Hematocrit 21 % (42-52); Hemoglobin 7.4 g/dL (14.0-18.0)
[2021-11-26] MEDS: Pantoprazole VIAL 40 MG VIAL IV SCH ×3 (00:15→22:06)
[2021-11-26] MEDS ORDERED: Morphine 2 MG/ML SYRINGE IV ONE ×2 (00:50→06:24)
[2021-11-26 02:19] LABS: Hematocrit 23 % (42-52); Hemoglobin 8.2 g/dL (14.0-18.0)
[2021-11-26 05:58] LABS: ABS Eosinophils 0.1 10^3/ul (0-0.6); ABS Lymphocytes 1.1 10^3/ul (1.0-4.8); ABS Monocytes 0.9 10^3/ul (0-0.8); ABS Neutrophils 5.7 10^3/ul (1.5-7.7); Eosinophil % 1.1 %; Hematocrit 23 % (42-52); Hemoglobin 8.4 g/dL (14.0-18.0); Lymphocyte % 13.6 %; Mean Corpuscular HGB Conc 37 g/dL (31-36); Mean Corpuscular Hemoglobin 34 pg (27-31); Mean Corpuscular Volume 92 fL (80-94); Mean Platelet Volume 6.8 fL (7.4-10.4); Nucleated Red Blood Cells % 0.1; Platelet Count 214 10^3/uL (150-450); Red Blood Count 2.49 10^6 /uL (4.18-5.48); Red Cell Distribution Width 15 % (10-15); White Blood Count 7.8 10^3/uL (3.5-10.8)
[2021-11-26 06:06] LABS: Calcium 8.6 mg/dL (8.6-10.3); Magnesium 2.1 mg/dL (1.9-2.7); Potassium 3.6 mmol/L (3.5-5.0); eGFR CKD-EPI 82.5 (>60)
[2021-11-26] MEDS: SPIRIVA Respimat (tiotropium) 2.5 mcg/inh Inhaler INH SCH (09:05)
[2021-11-26] MEDS: Aspirin EC 81 mg TAB.EC (enteric coated) PO SCH (09:10)
[2021-11-26] MEDS: Fluticasone NASAL SPRAY 50MCG 16 gm SPRAY BTL INTRANASAL SCH (11:02)
[2021-11-26] MEDS: Lactated Ringers 1000 ml BAG 1,000 ML IV SCH (11:07)
[2021-11-26] MEDS: Gemfibrozil 600 mg PO SCH ×2 (11:29→22:54)
[2021-11-26] MEDS ORDERED: Iodixanol (CONTRAST) 320 MG/ML 100 ML SDV IV ONE (13:21)
[2021-11-26] MEDS: Morphine 2 MG/ML SYRINGE IV SCH ×2 (14:20→22:00)
[2021-11-26] MEDS ORDERED: Lorazepam PYXIS KEY PRN ×2 (14:44→16:57)
[2021-11-26] MEDS ORDERED: LORazepam 2 mg VIAL 1 ml IV PUSH ONE (14:45)
[2021-11-26 16:58] LABS: Hematocrit 23 % (42-52); Hemoglobin 7.9 g/dL (14.0-18.0)
[2021-11-26] MEDS: Thiamine 100 MG/ML 2 ml VIAL 100 MG in NS 0.9% 50 ML 50 ML IV SCH (17:18)
[2021-11-26] MEDS: LORazepam 2 mg VIAL 1 ml IV PUSH SCH (23:07)
[2021-11-27] MEDS: Lactated Ringers 1000 ml BAG 1,000 ML IV SCH (01:08)
[2021-11-27] MEDS: Morphine 2 MG/ML SYRINGE IV SCH ×2 (05:42→13:54)
[2021-11-27 06:12] LABS: ABS Eosinophils 0.1 10^3/ul (0-0.6); ABS Lymphocytes 0.9 10^3/ul (1.0-4.8); ABS Monocytes 0.9 10^3/ul (0-0.8); Eosinophil % 0.6 %; Hematocrit 22 % (42-52); Hemoglobin 7.9 g/dL (14.0-18.0); Lymphocyte % 9.7 %; Mean Corpuscular HGB Conc 36 g/dL (31-36); Mean Corpuscular Hemoglobin 33 pg (27-31); Mean Corpuscular Volume 93 fL (80-94); Mean Platelet Volume 6.6 fL (7.4-10.4); Platelet Count 251 10^3/uL (150-450); Red Blood Count 2.39 10^6 /uL (4.18-5.48); Red Cell Distribution Width 15 % (10-15); White Blood Count 8.8 10^3/uL (3.5-10.8)
[2021-11-27 06:33] LABS: Calcium 9.1 mg/dL (8.6-10.3); Potassium 3.9 mmol/L (3.5-5.0); eGFR CKD-EPI 88.8 (>60)
[2021-11-27] MEDS: SPIRIVA Respimat (tiotropium) 2.5 mcg/inh Inhaler INH SCH (07:20)
[2021-11-27] MEDS: LORazepam 2 mg VIAL 1 ml IV PUSH SCH (09:05)
[2021-11-27] MEDS: Pantoprazole VIAL 40 MG VIAL IV SCH ×2 (09:06→21:36)
[2021-11-27] MEDS: Gemfibrozil 600 mg PO SCH ×2 (09:06→21:38)
[2021-11-27] MEDS: Fluticasone NASAL SPRAY 50MCG 16 gm SPRAY BTL INTRANASAL SCH (09:07)
[2021-11-27] MEDS: Thiamine 100 MG/ML 2 ml VIAL 100 MG in NS 0.9% 50 ML 50 ML IV SCH (17:13)
[2021-11-27] MEDS: oxyCODONE SR 10 mg TAB PO SCH (21:37)
[2021-11-28 06:22] LABS: ABS Eosinophils 0.3 10^3/ul (0-0.6); ABS Lymphocytes 1.4 10^3/ul (1.0-4.8); ABS Neutrophils 7.1 10^3/ul (1.5-7.7); Eosinophil % 2.6 %; Hematocrit 20 % (42-52); Hemoglobin 7.2 g/dL (14.0-18.0); Lymphocyte % 14.8 %; Mean Corpuscular HGB Conc 37 g/dL (31-36); Mean Corpuscular Hemoglobin 34 pg (27-31); Mean Corpuscular Volume 93 fL (80-94); Mean Platelet Volume 6.8 fL (7.4-10.4); Nucleated Red Blood Cells % 0.1; Platelet Count 239 10^3/uL (150-450); Red Blood Count 2.14 10^6 /uL (4.18-5.48); Red Cell Distribution Width 15 % (10-15); White Blood Count 9.8 10^3/uL (3.5-10.8)
[2021-11-28 06:37] LABS: Calcium 8.4 mg/dL (8.6-10.3); Potassium 4.2 mmol/L (3.5-5.0); eGFR CKD-EPI 98.6 (>60)
[2021-11-28] MEDS: SPIRIVA Respimat (tiotropium) 2.5 mcg/inh Inhaler INH SCH (07:17)
[2021-11-28] MEDS: Pantoprazole VIAL 40 MG VIAL IV SCH ×2 (09:13→21:09)
[2021-11-28] MEDS: Nicotine PATCH 7 MG/24 HR PATCH TRANSDERM SCH (09:13)
[2021-11-28] MEDS: Gemfibrozil 600 mg PO SCH ×2 (09:13→21:07)
[2021-11-28] MEDS: oxyCODONE SR 10 mg TAB PO SCH ×3 (09:14→21:08)
[2021-11-28] MEDS: Fluticasone NASAL SPRAY 50MCG 16 gm SPRAY BTL INTRANASAL SCH (09:17)
[2021-11-28] MEDS: Polyethylene Glycol 3350 17 GM PACKET PO SCH (14:12)
[2021-11-29 05:04] LABS: ABS Eosinophils 0.2 10^3/ul (0-0.6); ABS Lymphocytes 1.4 10^3/ul (1.0-4.8); ABS Monocytes 0.9 10^3/ul (0-0.8); ABS Neutrophils 5.5 10^3/ul (1.5-7.7); Eosinophil % 2.9 %; Hematocrit 22 % (42-52); Hemoglobin 7.6 g/dL (14.0-18.0); Lymphocyte % 17.2 %; Mean Corpuscular HGB Conc 35 g/dL (31-36); Mean Corpuscular Hemoglobin 33 pg (27-31); Mean Corpuscular Volume 92 fL (80-94); Mean Platelet Volume 5.9 fL (7.4-10.4); Nucleated Red Blood Cells % 0.1; Platelet Count 262 10^3/uL (150-450); Red Blood Count 2.34 10^6 /uL (4.18-5.48); Red Cell Distribution Width 15 % (10-15)
[2021-11-29 05:55] LABS: Calcium 8.5 mg/dL (8.6-10.3); Potassium 3.9 mmol/L (3.5-5.0); eGFR CKD-EPI 97.1 (>60)
[2021-11-29] MEDS: SPIRIVA Respimat (tiotropium) 2.5 mcg/inh Inhaler INH SCH (07:42)
[2021-11-29] MEDS: Gemfibrozil 600 mg PO SCH ×2 (08:39→20:12)
[2021-11-29] MEDS: oxyCODONE SR 10 mg TAB PO SCH ×3 (08:40→20:12)
[2021-11-29] MEDS: Polyethylene Glycol 3350 17 GM PACKET PO SCH (08:41)
[2021-11-29] MEDS: Pantoprazole VIAL 40 MG VIAL IV SCH (08:48)
[2021-11-29] MEDS: Fluticasone NASAL SPRAY 50MCG 16 gm SPRAY BTL INTRANASAL SCH (08:48)
[2021-11-29] MEDS: Nicotine PATCH 7 MG/24 HR PATCH TRANSDERM SCH (08:51)
[2021-11-29] MEDS ORDERED: Senna TAB 8.6 mg TAB PO PRN (11:10)
[2021-11-29 12:32] LABS: Urine Bacteria Absent (Absent); Urine Red Blood Cell Trace(0-2/hpf) (Absent); Urine White Blood Cell Absent (Absent)
[2021-11-29 12:33] LABS: Urine Appearance Clear; Urine Bilirubin Negative (Negative); Urine Blood 1+ (Small) (Negative); Urine Color Straw; Urine Glucose Negative (Negative); Urine Ketones Negative (Negative); Urine Nitrite Negative (Negative); Urine Protein Negative (Negative); Urine Urobilinogen 0.2 (Negative) (Negative)
[2021-11-30 05:56] LABS: ABS Eosinophils 0.2 10^3/ul (0-0.6); ABS Lymphocytes 1.4 10^3/ul (1.0-4.8); ABS Monocytes 0.8 10^3/ul (0-0.8); ABS Neutrophils 5.4 10^3/ul (1.5-7.7); Eosinophil % 2.3 %; Hematocrit 22 % (42-52); Hemoglobin 7.4 g/dL (14.0-18.0); Lymphocyte % 17.9 %; Mean Corpuscular HGB Conc 35 g/dL (31-36); Mean Corpuscular Hemoglobin 33 pg (27-31); Mean Corpuscular Volume 95 fL (80-94); Mean Platelet Volume 6.6 fL (7.4-10.4); Platelet Count 284 10^3/uL (150-450); Red Blood Count 2.28 10^6 /uL (4.18-5.48); Red Cell Distribution Width 15 % (10-15); White Blood Count 7.9 10^3/uL (3.5-10.8)
[2021-11-30 06:23] LABS: Calcium 8.9 mg/dL (8.6-10.3); Potassium 4.1 mmol/L (3.5-5.0); eGFR CKD-EPI 96.1 (>60)
[2021-11-30 07:35] VITALS: BP 147/85
[2021-11-30] MEDS: SPIRIVA Respimat (tiotropium) 2.5 mcg/inh Inhaler INH SCH (07:43)
[2021-11-30] MEDS: Gemfibrozil 600 mg PO SCH (07:44)
[2021-11-30] MEDS: oxyCODONE SR 10 mg TAB PO SCH (07:45)
[2021-11-30] MEDS: Nicotine PATCH 7 MG/24 HR PATCH TRANSDERM SCH (07:49)
[2021-11-30] MEDS: Fluticasone NASAL SPRAY 50MCG 16 gm SPRAY BTL INTRANASAL SCH (07:51)
[2021-11-30] MEDS ORDERED: Senna TAB 8.6 mg TAB PO SCH (09:00)
[2021-11-30] MEDS ORDERED: Polyethylene Glycol 3350 17 GM PACKET PO SCH (09:00)
== END 2021-11-30 12:55 | DRG 52 ==
LOC: ED 17:18 → EDHOLD 17:18 → SUATTDRO 21:40 → OBSVTOIN 21:40 → MED 11-23 17:56
PROVIDERS: ADMIT Internal Medicine; ATTEND Internal Medicine

== ENCOUNTER 2023-06-18 05:46 | Observation (INO) ==
[~2023-06-18 05:46] MED LIST: Metoclopramide 5 MG/ML VIAL (10 mg) IV PRN; NS 0.45% 1000 ml BAG 1,000 ML IV SCH; Naloxone 0.4 mg VIAL 0.4 mg/ml 1 ml VIAL IV PRN
[2023-06-18] MEDS ORDERED: Scopolamine 1 mg/72hr PATCH ONE (06:06)
[2023-06-18] MEDS ORDERED: ceFAZolin 2 GM PREMIX 2 GM/50 ML BAG ONE (06:07)
[2023-06-18] MEDS: Lactated Ringers 1000 ml BAG 1,000 ML IV SCH ×2 (06:46→13:37)
[2023-06-18] MEDS: Scopolamine 1 mg/72hr PATCH TRANSDERM ONE (06:46)
[2023-06-18 06:54] LABS: Rapid COVID-19 Molecular Undetected (Undetected)
[2023-06-18] MEDS ORDERED: Lidocaine 1% w EPI 1:200,000 SDV 30 ML VIAL ONE (07:10)
[2023-06-18] MEDS ORDERED: Lidocaine 2% PF 5 ML VIAL ONE (07:10)
[2023-06-18] MEDS ORDERED: Propofol 10 MG/ML 20 ML BTL ONE (07:10)
[2023-06-18] MEDS ORDERED: Bupivacaine 0.5% SDV PF 30ML VIAL ONE (07:10)
[2023-06-18] MEDS ORDERED: Midazolam 2 mg/2 ml VIAL 1 mg/ml 2 ml VIAL (2 mg) ONE (07:11)
[2023-06-18] MEDS ORDERED: fentaNYL 100 mcg/2 ml 50 MCG/ML VIAL ONE ×2 (07:11→09:41)
[2023-06-18] MEDS ORDERED: Rocuronium 50 mg VIAL 10 mg/ml 5 ml VIAL (50 mg) ONE (07:11)
[2023-06-18] MEDS ORDERED: Phenylephrine IV 10 MG/ML 1 ml VIAL ONE (07:14)
[2023-06-18] MEDS ORDERED: Ondansetron 4 mg VIAL 2 MG/ML 2 ml VIAL ONE ×2 (08:08→09:42)
[2023-06-18] MEDS ORDERED: Glycopyrrolate IV 0.2 MG/ML 1 ML VIAL ONE (08:18)
[2023-06-18] MEDS ORDERED: Ondansetron 4 mg VIAL 2 MG/ML 2 ml VIAL IV PRN (09:33)
[2023-06-18] MEDS ORDERED: Albuterol/Ipratropium NEB.SOL (2.5/0.5 MG) 3 ML NEB.SOLN INH PRN (09:38)
[2023-06-18] MEDS ORDERED: Acetaminophen IV 1 GM/100ML 1,000 MG/100 ML BAG IV ONE (09:42)
[2023-06-18] MEDS: Ondansetron 4 mg VIAL 2 MG/ML 2 ml VIAL IV PRN (09:43)
[2023-06-18] MEDS: fentaNYL 100 mcg/2 ml 50 MCG/ML VIAL IV PRN (09:44)
[2023-06-18] MEDS ORDERED: HYDROmorphone 1 MG/1 ML SYRINGE ONE (09:56)
[2023-06-18] MEDS: HYDROmorphone 1 MG/1 ML SYRINGE IV SLOW PU PRN (09:56)
[2023-06-18] MEDS: Acetaminophen IV 1 GM/100ML 1,000 MG/100 ML BAG IV ONE (09:58)
[2023-06-18] MEDS: Buffered Lidocaine 1% SYRIN 1 ml INTRADERM ONE (19:50)
[2023-06-18] MEDS: Calcium Carb (TUMS) 500 mg CHEW TAB PO PRN (20:24)
[2023-06-19 06:02] LABS: ABS Eosinophils 0.1 10^3/uL (0.0-0.5); ABS Lymphocytes 1.4 10^3/uL (1.0-4.8); ABS Monocytes 0.7 10^3/uL (0.0-1.1); ABS Neutrophils 5.1 10^3/uL (1.5-7.6); ABS Nucleated RBC 0.01 10^3/ul; Eosinophil % 1.5 %; Hemoglobin 11.2 g/dL (13.2-16.3); Lymphocyte % 18.5 %; Mean Corpuscular Hemoglobin 32.6 pg (27-33); Mean Corpuscular Hgb Conc 33.9 g/dL (31-36); Mean Corpuscular Volume 96.4 fL (80-97); Mean Platelet Volume 7.9 fL (7.5-11.2); Nucleated Red Blood Cells % 0.1 %/100WBC (0.0-0.8); Platelet Count 234 10^3/uL (150-450); Red Blood Count 3.42 10^6/uL (4.06-5.63); Red Cell Distribution Width 14.5 % (12-17); White Blood Count 7.3 10^3/uL (3.6-10.2)
[2023-06-19 07:39] LABS: Calcium 9.7 mg/dL (8.6-10.3); Creatinine, Serum 1.57 mg/dL (0.67-1.17); Potassium 4.3 mmol/L (3.5-5.0)
[2023-06-19 10:40] VITALS: BP 123/65
== END 2023-06-19 13:17 | disposition home or self-care (01) ==
LOC: AA 05:46 → INTOOBSV 05:46 → SSU 09:30 → EDSTATUS 10:15
PROVIDERS: ADMIT Surgery; ATTEND Surgery